=== PATIENT | female | born 1980 ===

== ENCOUNTER → 2019-03-29 | Outpatient (CLI) | payer OTHER ==
[2019-03-30 15:06] LABS: HPV 16 Negative (Negative); HPV 18 Negative (Negative); HPV OTHER HR TYPES Negative (Negative)
== END | disposition home or self-care (01) ==
LOC: LAB SHORT 11:10 → LAB 11:10
PROVIDERS: Nurse Practitioner Obstetrics & Gynecology
DX: Z00.00 Encounter for general adult medical examination without abnormal findings (principal)
CPT/HCPCS: 87624; G0123

== ENCOUNTER → 2025-01-25 | Outpatient (CLI) | payer BC ==
[2025-02-02 12:31] LABS: HPV HIGH RISK BY TMA Not Detected; HPV SOURCE Cervical
== END | disposition home or self-care (01) ==
LOC: LAB SHORT 13:18 → LAB 13:18
PROVIDERS: Advanced Practice Midwife
DX: Z01.419 Encounter for gynecological examination (general) (routine) without abnormal findings (principal)
CPT/HCPCS: 87624; G0123

== ENCOUNTER 2025-06-25 22:46 | Emergency (ER) | payer BC ==
[~2025-06-25] VITALS: Ht 157.5 cm; Wt 69.8 kg
[2025-06-25 22:54] VITALS: BP 146/94
[2025-06-26] MEDS ORDERED: RX Prepack 6 Tabs Oxycodone 5mg UD ONE (02:20)
== END 2025-06-26 02:32 | disposition home or self-care (01) ==
LOC: ER 22:46
DX: S92.351A Displaced fracture of fifth metatarsal bone, right foot, initial encounter for closed fracture (principal); W01.0XXA Fall on same level from slipping, tripping and stumbling without subsequent striking against object, initial encounter
CPT/HCPCS: 73630; A9270